=== PATIENT | male | born 1985 | race Caucasian/White ===

== ENCOUNTER 2024-04-06 15:23 | Outpatient (AMB) | payer OTHER, SELFPAY ==
[2024-04-06 15:31] VITALS: BP 144/76; PULSE 102; RESP 15; TEMP 36.6; O2SAT 99; BMI 39.3
--- NOTE | 2024-04-06 15:31 | MHC.PC.OV ---
Vital Signs 04/06/24 15:31 04/06/24 16:13 Height 6 ft 6 in Weight 340 lb 6 oz BMI 39.3 BP 144/76 H Blood Pressure Location Rt brachial Position Sitting Respiration 15 Pulse 102 H 88 Pulse Source Pulse Oximeter Temp 97.8 F Temp Source Temporal Artery Scan Pulse Oximetry (%) 99 Oxygen Delivery Method Room Air Intake Visit Reasons: [facility] not a transfer Intake Note: Patient states that he would like to discuss his elevated bp and other alternatives that wouldnt require him to take medication. Patint is also concerned about a hernia he currently has. Bulb Grader Required: No Accompanied by: Self / Same As Patient Allergies No Known Allergies [No Known Allergies*] Allergy (Verified 04/06/24 15:38) Tobacco use date assessed: 04/06/24 Dental Screening Dental Screen Date: 04/06/24 Did you have a dental visit in the last 12 months?: Yes Did you have a dental problem in the last 6 months where you did not have access to dental care?: No Was dental information given to patient?: Patient has dentist HPI HPI Comments History of Present Illness Details This is a 38-year-old male with a past medical history of hypertension and obesity presenting to [facility]. He transferred from Dr. Bean. Hypertension-patient was prescribed lisinopril in the past. It caused restless legs. He stopped it. Blood pressure is 144/76 today. He has not been monitoring at home. He is overweight. He drinks soda, usually to coke, 2 per day. When he stopped drinking soda he lost 20 or 30 lb in a few months. 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 He has 2 dinner portions of food around 630pm. He does not drink much alcohol. He just came back from vacation and drank about 6 beers the entire time. He does not smoke. Denies family history of hypertension. No chest pain or shortness of breath. No leg swelling. Patient says he does not like to take medications. He also does not want to develop complications from high blood pressure. He endorses history of hypertension for more than 5 years. He wants to take better care of himself. He has a 4-year-old daughter. Patient says he has a hernia in the right groin. He saw Dr. Valente at [facility] about 8 months ago. It was not present on the CT scan. He was told to follow up if it got worse. He says that it is more noticeable now and causes discomfort when it is not reduced. He has had four hernias as a result of surgery for a colon rupture from an intestinal infection years ago. He was admitted on and off for 2 months at [facility] for that. He has had a few colonoscopies. ROS: Constitutional: No unexplained weight loss, fever, chills, fatigue or night sweats. Eyes: No vision changes Respiratory: No shortness of breath Cardiovascular: No chest pain, chest pressure or chest discomfort. No palpitations or pedal edema. Gastrointestinal: No anorexia, nausea, vomiting or diarrhea. No abdominal pain or blood in stool. Neurologic: No headache, dizziness, syncope [facility] Medical History (Updated 04/06/24 @ 16:29 by SURESH Lima) Obesity with serious comorbidity Essential hypertension Hernia BP (high blood pressure) Rupture of colon Surgical History H/O hernia repair Family History Father Emphysema lung Social History (Updated 04/06/24 @ 15:44 by ANURADHA Carroll) Household Members: Spouse and Family Both parents involved: No Caregiver staying overnight: No Housing: House Are you a primary neonatal intensive care nurse to a significant other at home: No Do you presently have visiting nurse or other home services: No 75 years or older and lives alone: No Alcohol intake: current Alcohol intake frequency: holidays/special occasions only Patient Tobacco Use Status: Never used Tobacco e-Cigarette/Vaping Use: Never Used service: No Current occupational status: employed Current occupation: [employer] Cognitive 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 1. Little interest or pleasure in doing things: not at all 2. Feeling down, depressed, or hopeless: not at all 3. Trouble falling or staying asleep, or sleeping too much: not at all 4. Feeling tired or having little energy: not at all 5. Poor appetite or overeating: not at all 6. Feeling bad about yourself - or that you are a failure or have let yourself or your family down: not at all 7. Trouble concentrating on things, such as reading the newspaper or watching television: not at all 8. Moving or speaking so slowly that other people could have noticed. Or the opposite - being so fidgety or restless that you have been moving around a lot more than usual: not at all 9. Thoughts that you would be better off or of hurting yourself in some way: not at all Total score: 0 Depression Screening Interpretation: Negative Depression Screening Done: Yes 73057 - PHQ-9 Billing: Yes Source: Developed by Drs. Eron Aguilar, Luzmaria Henry, Armaan Middleton and colleagues, with an educational philly from [employer]. Thrive Questionnaire Date Thrive assessed: 04/06/24 I am a: Patient What is your living situation today?: I have a steady place to live Within the past 12 months, did the food you bought not last and you didn't have the money to get more?: Never true Within the past 12 months, did you worry whether your food would run out before you got money to buy more?: Never true Do you have trouble paying for medicines?: No Do you have trouble getting transportation to medical appointments?: No Do you have trouble paying your heating and electricity bill?: No Do you have trouble taking care of your child, family member or friend?: No Do you have trouble with day-to-day activities such as bathing, preparing meals, shopping, managing finances, etc.?: No Are you currently unemployed and looking for a job?: No Are you interested in more education?: Yes Please select the resources that you would like help with: Education and None Currently or been in a relationship where the following occur: No concerns reported THRIVE Score: 0 AUDIT C Alcohol Use Questionnaire (AUDIT-C) 1. How often do you have a drink containing alcohol?: Monthly or less 2. How many drinks containing alcohol do you have on a typical day when you are drinking?: 1 or 2 3. How often do you have six or more drinks on one occasion?: Never Total Score: 1 MÓNICA-7 AMB Questionnaire MÓNICA-7 Date MÓNICA - 7 assessed: 04/06/24 Feeling nervous, anxious, or on edge: 0 = Not at all Not being able to stop or control worryin = Not at all Worrying too much about different things: 0 = Not at all Trouble relaxin = Not at all Being so restless that it is hard to sit still: 0 = Not at all Becoming easily annoyed or irritable: 0 = Not at all Feeling afraid as if something awful might happen: 0 = Not at all Total MÓNICA-7 score (0-4 normal; 5-9 mild; 10-14 moderate; 15-21 severe): 0 Source: Developed by Drs. Eron Aguilar, Luzmaria Henry, Armaan Middleton and colleagues, with an educational philly from [employer]. MÓNICA-7 Assessment Billing MÓNICA-7 Assessment Tool: MÓNICA-7 Assessment 15472 Physical exam (Primary Care) Vital Signs: Last Vital Signs Temp 97.8 F 04/06/24 15:31 Pulse 88 04/06/24 16:13 Resp 15 04/06/24 15:31 BP 144/76 H 04/06/24 15:31 Pulse Ox 99 04/06/24 15:31 Oxygen Delivery Method Room Air 04/06/24 15:31 BMI result Body Mass Index 39.3 Tobacco/Smoking Status: Tobacco use Status Tobacco use date assessed 04/06/24 04/06/24 15:47 Patient Tobacco Use Status Never used Tobacco 04/06/24 15:47 e-Cigarette/Vaping Use Never Used 04/06/24 15:47 PHQ-9: PHQ-9 Score PHQ-9: Total score 0 04/06/24 16:15 Depression Screening Interpretation: Negative Thrive Assessment: Date of Thrive Assessment Date Thrive assessed 04/06/24 04/06/24 15:47 Currently or been in a relationship where the following occur: No concerns reported Assessment and Plan Assessment & Plan (1) Essential hypertension: Code(s): I10 - Essential (primary) hypertension (2) Obesity with serious comorbidity: Code(s): E66.9 - Obesity, unspecified Qualifiers: Body mass index: BMI 39.0-39.9 Obesity classification: adult class 2 (BMI 35 - 39.9) Obesity type: due to excess calories Qualified Code(s): E66.01 - Morbid (severe) obesity due to excess calories; Z68.39 - Body mass index [BMI] 39.0-39.9, adult (3) Hernia: Code(s): K46.9 - Unspecified abdominal hernia without obstruction or gangrene Plan Patient will have fasting labs completed and urinalysis to check for proteinuria. Patient will have echocardiogram to evaluate for hypertensive heart disease. He is going to call Dr. Valente regarding the hernia. He is adamant that he wants to avoid medications. He wants to try lifestyle modifications. We will allow him 3 months to work on this. Recommended low-salt diet. He is going to stop drinking soda. Avoid caffeine. Low-carbohydrate diet and exercise to promote weight loss are encouraged. Defers referral to chronic specialist. We discussed weight loss medications. He defers for now. Follow up in 3 months for physical exam/blood pressure recheck. Orders: Orders Comprehensive Met. Panel Today E66.9 - Obesity, unspecified, I10 - Essential (primary) hypertension, Z13.6 - Encounter for screening for cardiovascular disorders AMB EKG-In Office Today I10 - Essential (primary) hypertension Lipid Panel Today E66.9 - Obesity, unspecified, I10 - Essential (primary) hypertension, Z13.6 - Encounter for screening for cardiovascular disorders Complete Blood Count no Diff Today E66.9 - Obesity, unspecified, I10 - Essential (primary) hypertension, Z13.6 - Encounter for screening for cardiovascular disorders TSH reflex Free T4 Today E66.9 - Obesity, unspecified, I10 - Essential (primary) hypertension, Z13.6 - Encounter for screening for cardiovascular disorders UA w Microscopic Today I10 - Essential (primary) hypertension Coding Level of Care Code Est Pt Level 4 (53261) Complex EM visit Add On G2211 Diagnoses Essential hypertension I10 Class 2 severe obesity due to excess calories with serious comorbidity and body mass index (BMI) of 39.0 to 39.9 in adult E66.01; Z68.39 Body mass index: BMI 39.0-39.9 Obesity classification: adult class 2 (BMI 35 - 39.9) Obesity type: due to excess calories Hernia K46.9 Additional Codes MÓNICA-7 Assessment Billing - MÓNICA-7 Assessment Tool: MÓNICA-7 Assessment 18533 ([id number])
[2024-04-06 16:13] VITALS: PULSE 88
== END 2024-04-06 16:57 | disposition home or self-care (01) ==
PROVIDERS: PCP Physician Assistant Medical; Visit Provider Physician Assistant Medical
DX: I10 Essential (primary) hypertension (principal); E66.01 Morbid (severe) obesity due to excess calories; Z68.39 Body mass index [BMI] 39.0-39.9, adult; K46.9 Unspecified abdominal hernia without obstruction or gangrene
CPT/HCPCS: 99214

== ENCOUNTER → 2024-05-29 15:00 | Outpatient (REF) | payer OTHER, SELFPAY ==
--- NOTE | 2024-05-29 15:03 | CA_ITS ---
Transthoracic Echocardiogram Patient (Last, First, Middle): Levar Rich F Gender: Male Date of : 1985 Age: 38 Procedure Date: 05/29/2024 Procedure Type: Transthoracic Echocardiogram Location: OP Height: 198.12 cm Weight: 138.35 kg BSA: 2.70 m2 Heart Rate: bpm BP: 132 / 70 mmHg Outpatient Coding Specialist: TO Referring MD: Judy PRINCE Symptoms: I10 - Essential (primary) hypertension Study Quality: Technically Difficult/Contrast Conclusions: - Normal left ventricular size, thickness, systolic function, and wall motion. The visually estimated ejection fraction is between 55-60%. There is evidence of regional wall motion abnormalities. Diastolic function is normal for age. - The basal inferior segment is hypokinetic. - Normal right ventricular cavity size and systolic function. Findings Procedure Information Contrast agent, definity, is being given per protocol without apparent complications. Left Ventricle Normal left ventricular size, thickness, systolic function, and wall motion. The visually estimated ejection fraction is between 55-60%. There is evidence of regional wall motion abnormalities. Diastolic function is normal for age. Wall Motion Rest Echo Findings The basal inferior segment is hypokinetic. Right Ventricle Normal right ventricular cavity size and systolic function. Atria The left atrium is normal in size. The right atrium is normal in size. Aortic Valve Normal aortic valve structure and function. There is no aortic valve stenosis. There is no aortic valve regurgitation. Mitral Valve The mitral valve appears normal. There is no mitral valve regurgitation. There is no mitral valve stenosis. Pulmonic Valve The pulmonic valve is normal. There is no pulmonic valve regurgitation. Tricuspid Valve Normal tricuspid valve structure. There is no tricuspid valve regurgitation. Tricuspid regurgitation envelope is inadequate for calculation of right ventricular systolic pressure. Normal right atrial pressure. Great Vessels All visible segments of the aorta are normal in size. The visualized portions of the pulmonary artery and branches are normal. Venous The inferior vena cava is normal in size and collapses greater than 50% with inspiration. Pericardium/Pleural There is no evidence of pericardial effusion. Prior Study Comparison No prior study available for comparison. Measurements 2D Linear Measurements IVSd: 1.24 0.6-0.9/0.6-1.0 cm LVIDd: 5.39 3.9-5.3/4.2-5.9 cm LVIDd Index: 2.00 2.4-3.2/2.2-3.1 cm/m2 LVIDs: 4.01 2.0-3.6 cm LVPWd: 1.02 0.7-1.1 cm LA Diam: 3.80 2.7-3.8/3.0-4.0 cm LAIDs Index: 1.41 1.5-2.3 cm/m2 LV Mass: 302.75 67-162/88-224 g LV Mass Index: 112.13 43-95/49-115 g/m2 LVOT Diam: 2.70 3.0+(-)1.3 cm 2D Systolic Function EF 4C: 52.60 >55% EF 2C: 55.10 >55% EF BiP: 54.60 >55% Mitral Valve MV Pk E: 0.72 MV PK A: 0.44 MV Decel Time: 209.00 E/A: 1.60 E'Lateral: 9.57 E'Medial: 9.03 E/E' Med: 8.00 E/E' Lat: 7.50 PHT: 61.00 MVA PHT: 3.61 Decel Blair: 3.44 Aortic Valve AoV Pk Fredis: 1.16 AoV Mn Fredis: 0.82 AoV VTI: 0.25 AoV Pk Grad: 5.00 Aov Mn Grad: 3.00 N[place]EL Cont.VTI: 4.02 LVOT LVOT Pk Fredis: 0.78 LVOT Mn Fredis: 0.50 LVOT VTI: 0.17 LVOT Pk Grad: 2.00 LVOT Mn Grad: 1.00 LVOT Diam: 2.70 LVOT Area: 5.73 Diastolic Function MV Pk E: 0.72 MV Pk A: 0.44 E/A: 1.60 E'Medial: 9.03 E/E' Med: 8.00 E' Laterial: 9.57 E/E' Lat: 7.50 Right Ventricle TAPSE (mm): 21.40 TVS' Fredis: 11.60 Tricuspid Valve RA Press: 8.00 Great Vessels Aorta Sinus of Valsalva: 3.94 2.0-3.5 cm Ao Asc: 3.30 2.1-3.4 cm Ao Arch: 2.80 Updated in Other Vendor System with Status of Final Arie Gonzalez MD electronically signed on 05/31/2024 1:37:25 PM with status of Final
== END ==
LOC: HO.CARD 15:00
PROVIDERS: PCP Physician Assistant Medical; Visit Provider Physician Assistant Medical
DX: I10 Essential (primary) hypertension (principal); E66.01 Morbid (severe) obesity due to excess calories; Z68.39 Body mass index [BMI] 39.0-39.9, adult
CPT/HCPCS: 93306; Q9957

== ENCOUNTER → 2024-05-29 15:03 | Outpatient (BNV) | payer OTHER, SELFPAY | PROVIDERS: PCP Physician Assistant Medical; Visit Provider Internal Medicine Cardiovascular Disease | DX: I10 Essential (primary) hypertension (principal) | CPT/HCPCS: 93306 ==

== ENCOUNTER 2024-07-23 10:54 | Outpatient (AMB) | payer OTHER, SELFPAY ==
--- NOTE | 2024-07-23 10:56 | A.OFFPC_ITS ---
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 He had an echocardiogram in May which was normal aside from basal inferior segment hypokinesis. He has no history of CAD. He denies chest pain or shortness of breath with exertion. I referred him to Cardiology for this. His appointment is scheduled in September. Patient tells me today that he is having surgery on 09/28/2023 to repair the right inguinal hernia. 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 The patient is very stressed because he does not know what else he can do. He is going to talk to his union rep, and he was asking about disability. I told him he can pursue that though I do not know if it will be approved. He may also look into filing for unemployment, but ultimately he would like to see if the college can offer him another job that does not require lifting. ROS: Constitutional: No unexplained weight loss, fever, chills, fatigue or night sw eats. Eyes: No vision changes, blurry vision, double vision, eye pain, eye redness, eye discharge. ENT: No hearing loss, sneezing, congestion, runny nose or sore throat. Respiratory: No shortness of breath, cough or sputum production. Cardiovascular: No chest pain, chest pressure or chest discomfort. No palpitations or pedal edema. Gastrointestinal: No anorexia, nausea, vomiting or diarrhea. No abdominal pain or blood in stool. Genitourinary: No dysuria, hematuria, urinary frequency. Neurologic: No headache, dizziness, syncope, unilateral weakness, ataxia, numbness or tingling in the extremities. Musculoskeletal: No muscle pain, back pain, joint pain or swelling. Hematologic/Lymphatics: No bleeding or bruising. No painful lymph nodes. Skin: No rash or itching. Endocrine: No cold or heat intolerance. No polyuria or polydipsia. Psychiatric: No depression. No SI/HI. Physical exam: Constitutional: Alert, in no distress. Head: Normocephalic. Eyes: Pupils are equal, round and reactive to light. Extraocular muscles intact. Ear, Nose and Throat: Canals clear. TMs normal. Normal nasal mucosa. No nasal discharge. No oral lesions. Neck: Supple, Full range of motion. No lymphadenopathy. No palpable thyroid masses. Respiratory: Clear to auscultation. Cardiovascular: S1 S2 regular. No murmurs. Gastrointestinal: Abdomen soft, non-tender, non-distended. Normal bowel sounds. No palpable masses. Genitourinary: Deferred. Neurologic: No focal neurological deficits. Symmetric patellar reflexes. Moves all extremities spontaneously. Sensation intact bilaterally. Skin: No rashes Musculoskeletal: No gross deformities. Normal range of motion. Extremities: Warm and well perfused. No clubbing, cyanosis or edema. Psychiatric: Normal mood and affect [facility] Medical History (Updated 07/23/24 @ 15:28 by SURESH Lima) Routine physical examination Abnormal echocardiogram Obesity with serious comorbidity Essential hypertension Hernia BP (high blood pressure) Rupture of colon Surgical History H/O hernia repair Family History Father Emphysema lung Social History (Updated 04/06/24 @ 15:44 by ANURADHA Carroll) Household Members: Spouse and Family Both parents involved: No Caregiver staying overnight: No Housing: House Are you a primary hospice spiritual care coordinator to a significant other at home: No Do you presently have visiting nurse or other home services: No 75 years or older and lives alone: No Alcohol intake: current Alcohol intake frequency: holidays/special occasions only Patient Tobacco Use Status: Never used Tobacco e-Cigarette/Vaping Use: Never Used service: No Current occupational status: employed 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 1. Little interest or pleasure in doing things: not at all 2. Feeling down, depressed, or hopeless: not at all 3. Trouble falling or staying asleep, or sleeping too much: not at all 4. Feeling tired or having little energy: not at all 5. Poor appetite or overeating: not at all 6. Feeling bad about yourself - or that you are a failure or have let yourself or your family down: not at all 7. Trouble concentrating on things, such as reading the newspaper or watching television: not at all 8. Moving or speaking so slowly that other people could have noticed. Or the opposite - being so fidgety or restless that you have been moving around a lot more than usual: not at all 9. Thoughts that you would be better off or of hurting yourself in some way: not at all Total score: 0 73572 - PHQ-9 Billing: Yes Source: Developed by Drs. Eron Aguilar, Luzmaria Henry, Armaan Middleton and colleagues, with an educational philly from [employer]. Thrive Questionnaire Date Thrive assessed: 07/23/24 I am a: Patient What is your living situation today?: I have a steady place to live Within the past 12 months, did the food you bought not last and you didn't have the money to get more?: Sometimes True Within the past 12 months, did you worry whether your food would run out before you got money to buy more?: Sometimes True Do you have trouble paying for medicines?: No Do you have trouble getting transportation to medical appointments?: No Do you have trouble paying your heating and electricity bill?: No Do you have trouble taking care of your child, family member or friend?: No Do you have trouble with day-to-day activities such as bathing, preparing meals, shopping, managing finances, etc.?: No Are you currently unemployed and looking for a job?: No Are you interested in more education?: No Please select the resources that you would like help with: Food, Utilities, Job search/training and Education Currently or been in a relationship where the following occur: No concerns reported THRIVE Score: 2 AUDIT C Alcohol Use Questionnaire (AUDIT-C) 1. How often do you have a drink containing alcohol?: Never Total Score: 0 MÓNICA-7 AMB Questionnaire MÓNICA-7 Date MÓNICA - 7 assessed: 07/23/24 Feeling nervous, anxious, or on edge: 0 = Not at all Not being able to stop or control worryin = Not at all Worrying too much about different things: 0 = Not at all Trouble relaxin = Not at all Being so restless that it is hard to sit still: 0 = Not at all Becoming easily annoyed or irritable: 0 = Not at all Feeling afraid as if something awful might happen: 0 = Not at all Total MÓNICA-7 score (0-4 normal; 5-9 mild; 10-14 moderate; 15-21 severe): 0 Source: Developed by Drs. Eron Aguilar, Luzmaria Henry, Armaan Middleton and colleagues, with an educational philly from [employer]. MÓNICA-7 Assessment Billing MÓNICA-7 Assessment Tool: MÓNICA-7 Assessment 99191 Physical exam (Primary Care) Vital Signs: Last Vital Signs Temp 98.7 F 07/23/24 10:59 Pulse 86 07/23/24 10:59 Resp 14 07/23/24 10:59 BP 144/78 H 07/23/24 10:59 Pulse Ox 98 07/23/24 10:59 Oxygen Delivery Method Room Air 07/23/24 10:59 BMI result Body Mass Index 38.1 Tobacco/Smoking Status: Tobacco use Status Tobacco use date assessed 04/06/24 07/23/24 10:59 Patient Tobacco Use Status Never used Tobacco 07/23/24 10:59 e-Cigarette/Vaping Use Never Used 07/23/24 10:59 PHQ-9: PHQ-9 Score PHQ-9: Total score 0 07/23/24 11:59 Thrive Assessment: Date of Thrive Assessment Date Thrive assessed 07/23/24 07/23/24 10:59 Currently or been in a relationship where the following occur: No concerns reported Office Procedures Flu Questionnaire Does the patient have a severe egg allergy?: No Does the patient have severe life threatening allergies?: No Does the patient have a fever or illness today?: No Has the patient ever had Guillain-[place] Syndrome?: No Has the patient ever had any past reaction to a flu shot?: No Immunizations Fluarix Triv [id number] (PF) 45 mcg (15 mcg x 3)/0.5 mL IM syringe Performing Provider: SURESH Lima Performing Location: [facility] [place] [facility] Administered by: Michelle Prieto RN on 07/23/24 11:58 Dose Route Admin Location Dispensed Lot Number Expiration Date [facility] Production Corrugator 0.5 mL IM Right Deltoid 0.5 mL [id number] 03/15/25 [id number] Immune Targeting Systems VIS Given Date VIS Provided VIS Publication Date 07/23/24 Single Vaccine 21 Eligibility Eligibility Date Funding Source Not [facility] Eligible 07/23/24 Private Coding Level of Care Code Est Pt Prev Care 18-39y(89750) Diagnoses Routine physical examination Z00.00 Abnormal echocardiogram R93.1 Class 2 severe obesity due to excess calories with serious comorbidity and body mass index (BMI) of 39.0 to 39.9 in adult E66.01; Z68.39 Obesity type: due to excess calories Obesity classification: adult class 2 (BMI 35 - 39.9) Body mass index: BMI 39.0-39.9 Essential hypertension I10 Hernia K46.9 Additional Codes MÓNICA-7 Assessment Billing - MÓNICA-7 Assessment Tool: MÓNICA-7 Assessment 11615 ([id number]) PHQ-9 - 84461 - PHQ-9 Billing: Yes ([id number]) Assessment & Plan Assessment & Plan (1) Routine physical examination: Code(s): Z00.00 - Encounter for general adult medical examination without abnormal findings Category: Medical (2) Abnormal echocardiogram: Comment: basal inferior segment hypokinesis echo 05/29/2024 Code(s): R93.1 - Abnormal findings on diagnostic imaging of heart and coronary circ ulation Category: Medical (3) Obesity with serious comorbidity: Code(s): E66.9 - Obesity, unspecified Category: Medical Qualifiers: Obesity type: due to excess calories Obesity classification: adult class 2 (BMI 35 - 39.9) Body mass index: BMI 39.0-39.9 Qualified Code(s): E66.01 - Morbid (severe) obesity due to excess calories; Z68.39 - Body mass index [BMI] 39.0-39.9, adult (4) Essential hypertension: Code(s): I10 - Essential (primary) hypertension Category: Medical (5) Hernia: Code(s): K46.9 - Unspecified abdominal hernia without obstruction or gangrene Category: Medical Plan Patient is seen today for a routine physical. As part of this visit we reviewed the following issues, which are considered and essential part of preventative health in this age group: - Testicular cancer screening, which includes self exam teaching - Screening for colon cancer - Blood pressure screening annually - Cholesterol screening - Nutritional and exercise counseling - Counseling of injury prevention including fire prevention, smoke alarms and seat belt usage - Screening for depression - Education about skin cancer - Recommendations about immunizations - Recommendation of an eye exam - Screening for substance abuse I placed a new cardiology referral urgently since he will need to be cleared prior to surgery in September. Requested office visit note his general surgeon at [facility]. Patient will start amlodipine 5 mg daily for hypertension. Continue lifestyle modifications. He has lost weight and I congratulated him on this. Side effects of medication reviewed. Recommended low-sodium diet and avoidance of caffeine. Follow up in 4 weeks for hypertension. Orders: Orders Influenza [id number] Immunization Today Z23 - Encounter for immunization Medications: New amlodipine 5 mg PO DAILY 30 tabs 0RF
[2024-07-23 10:59] VITALS: BP 144/78; PULSE 86; RESP 14; TEMP 37.1; O2SAT 98; BMI 38.1
== END 2024-07-23 11:56 | disposition home or self-care (01) ==
LOC: HO.HMCFM 10:55
PROVIDERS: PCP Physician Assistant Medical; Visit Provider Physician Assistant Medical
DX: Z00.00 Encounter for general adult medical examination without abnormal findings (principal); R93.1 Abnormal findings on diagnostic imaging of heart and coronary circulation; E66.01 Morbid (severe) obesity due to excess calories; Z68.39 Body mass index [BMI] 39.0-39.9, adult; I10 Essential (primary) hypertension; K46.9 Unspecified abdominal hernia without obstruction or gangrene; Z23 Encounter for immunization

== ENCOUNTER → 2024-07-23 10:54 | Outpatient (BNVA) | payer OTHER, SELFPAY | PROVIDERS: PCP Physician Assistant Medical; Visit Provider Physician Assistant Medical | DX: Z00.00 Encounter for general adult medical examination without abnormal findings (principal); Z23 Encounter for immunization; R93.1 Abnormal findings on diagnostic imaging of heart and coronary circulation; E66.01 Morbid (severe) obesity due to excess calories; Z68.39 Body mass index [BMI] 39.0-39.9, adult; I10 Essential (primary) hypertension; K46.9 Unspecified abdominal hernia without obstruction or gangrene; Z79.899 Other long term (current) drug therapy | CPT/HCPCS: 90471; 90656; 96127 ==

== ENCOUNTER 2024-08-20 08:54 | Outpatient (AMB) | payer OTHER, SELFPAY ==
--- NOTE | 2024-08-20 08:56 | MHC.PC.OV ---
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 He started amlodipine 5 mg once daily. He denies side effects. His home readings are around 140/70s. Today his blood pressure is 142/71 which is a modest improvement. He had an echocardiogram in May which was normal aside from basal inferior segment hypokinesis. He has no history of CAD. He denies chest pain or shortness of breath with exertion. I referred him to Cardiology for this. His appointment is scheduled in September, and I placed a new urgent referral since he has surgery scheduled on 09/28/2023 for a right inguinal hernia repair. He has not heard back about a sooner appointment. I sent a high priority message to the referrals department, and I asked the patient to call me if he does not hear about this in 1 week. ROS: Constitutional: No unexplained weight loss, fever, chills, fatigue or night sweats. Eyes: No vision changes Respiratory: No shortness of breath Cardiovascular: No chest pain, chest pressure or chest discomfort. No palpitations or pedal edema. Neurologic: No headache, dizziness, syncope Physical exam: Constitutional: Alert, in no distress. Respiratory: Clear to auscultation. Cardiovascular: S1 S2 regular. No murmurs. [facility] Medical History (Updated 07/23/24 @ 15:28 by SURESH Lima) Routine physical examination Abnormal echocardiogram Obesity with serious comorbidity Essential hypertension Hernia BP (high blood pressure) Rupture of colon Surgical History H/O hernia repair Family History Father Emphysema lung Social History (Updated 04/06/24 @ 15:44 by ANURADHA Carroll) Household Members: Spouse and Family Housing: House Are you a primary career services officer to a significant other at home: No Do you presently have visiting nurse or other home services: No Alcohol intake: current Alcohol intake frequency: holidays/special occasions only Patient Tobacco Use Status: Never used Tobacco e-Cigarette/Vaping Use: Never Used service: No Current occupational status: employed 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 54764 - PHQ-9 Billing: Patient declined-do not bill Source: Developed by Drs. Eron Aguilar, Luzmaria Henry, Armaan Middleton and colleagues, with an educational philly from [employer]. Thrive Questionnaire Date Thrive assessed: 08/20/24 I am a: Patient What is your living situation today?: I have a steady place to live Within the past 12 months, did the food you bought not last and you didn't have the money to get more?: Sometimes True Within the past 12 months, did you worry whether your food would run out before you got money to buy more?: Sometimes True Do you have trouble paying for medicines?: No Do you have trouble getting transportation to medical appointments?: No Do you have trouble paying your heating and electricity bill?: No Do you have trouble taking care of your child, family member or friend?: No Do you have trouble with day-to-day activities such as bathing, preparing meals, shopping, managing finances, etc.?: No Are you currently unemployed and looking for a job?: No Are you interested in more education?: No Currently or been in a relationship where the following occur: No concerns reported THRIVE Score: 2 MÓNICA-7 AMB Questionnaire MÓNICA-7 Date MÓNICA - 7 assessed: 07/23/24 Source: Developed by Drs. Eron Aguilar, Luzmaria Henry, Armaan Middleton and colleagues, with an educational philly from [employer]. Physical exam (Primary Care) Vital Signs: Last Vital Signs Temp 97.7 F 08/20/24 08:59 Pulse 82 08/20/24 08:59 Resp 14 08/20/24 08:59 BP 142/71 H 08/20/24 09:15 Pulse Ox 98 08/20/24 08:59 Oxygen Delivery Method Room Air 08/20/24 08:59 BMI result Body Mass Index 38.6 Tobacco/Smoking Status: Tobacco use Status Tobacco use date assessed 04/06/24 08/20/24 09:01 Patient Tobacco Use Status Never used Tobacco 08/20/24 09:01 e-Cigarette/Vaping Use Never Used 08/20/24 09:01 Thrive Assessment: Date of Thrive Assessment Date Thrive assessed 08/20/24 08/20/24 09:01 Currently or been in a relationship where the following occur: No concerns reported Coding Level of Care Code Est Pt Level 3 (06754) Complex EM visit Add On G2211 Diagnoses Essential hypertension I10 Assessment & Plan Assessment & Plan (1) Essential hypertension: Code(s): I10 - Essential (primary) hypertension Category: Medical Plan: Increase amlodipine to 10 mg daily. Continue low-sodium diet and avoidance of caffeine and efforts at weight loss. Avoid alcohol. Follow up in 2 weeks for re-evaluation. Medications: New amlodipine 10 mg PO DAILY 30 tabs 0RF Discontinued amlodipine Discontinued Reason: Doctor's Order 5 mg PO DAILY 30 tabs 0RF
[2024-08-20 08:59] VITALS: BP 144/77; PULSE 82; RESP 14; TEMP 36.5; O2SAT 98; BMI 38.6
[2024-08-20 09:15] VITALS: BP 142/71
== END 2024-08-20 09:23 | disposition home or self-care (01) ==
PROVIDERS: PCP Physician Assistant Medical; Visit Provider Physician Assistant Medical
DX: I10 Essential (primary) hypertension (principal)

== ENCOUNTER → 2024-08-20 08:54 | Outpatient (BNVA) | payer OTHER, SELFPAY | PROVIDERS: PCP Physician Assistant Medical; Visit Provider Physician Assistant Medical ==

== ENCOUNTER 2024-08-20 09:27 | Outpatient (REF) | payer OTHER, SELFPAY ==
[2024-08-20 11:29] LABS: Appearance Urine Clear; Color Urine Yellow; Glucose Urine UA Negative (Negative); Leukocyte Esterase Urine Negative (Negative); Nitrite Urine Negative (Negative); Urine Blood Negative (Negative); Urine Ketones Negative (Negative); Urine Protein Negative (Neg-Trace)
[2024-08-20 11:33] LABS: Bacteria Urine None Seen (None Seen); Hyaline Casts Urine 0-2 /LPF (0-2); RBC Urine 0-2 /HPF (0-2); Squamous Epithelial Cell Urine 0-2 /HPF (0-2); WBC Urine 0-5 /HPF (0-5)
[2024-08-20 11:40] LABS: Hematocrit 38.5 % (42.0-52.0); Hemoglobin 13.3 g/dl (14.0-18.0); Mean Corpuscular HGB Conc 34.5 g/dl (31.0-36.0); Mean Corpuscular Hemoglobin 31.1 pg (27.0-33.0); Mean Corpuscular Volume 90.2 fL (80.0-98.0); Mean Platelet Volume 9.9 fL (9.4-12.4); Platelet Count 268 X10*3/uL (160-400); Red Blood Count 4.27 X10*6/uL (4.60-5.80); Red Cell Distribution Width 12.3 % (11.0-16.0); White Blood Count 6.5 X10*3/uL (4.8-10.8)
[2024-08-20 12:10] LABS: Alanine Aminotransferase 29 U/L (0-40); Albumin Level 4.3 g/dL (3.5-5.0); Alkaline Phosphatase 66 U/L (39-117); Anion Gap 9 (12-20); Aspartate Amino Transferase 26 U/L (5-37); Bilirubin Total 2.1 mg/dL (0.0-1.0); Blood Urea Nitrogen 10 mg/dL (9-16); Calcium 9.3 mg/dL (8.4-10.2); Carbon Dioxide 27 mmol/L (22-29); Chloride 107 mmol/L (96-108); Cholesterol 142 mg/dL (<200); Estimated Glomerular Filt Rate > 60; Glucose Random 99 mg/dL (60-115); HDL Cholesterol 35 mg/dL (>40); LDL Cholesterol Calculated 86 mg/dL (<100); Potassium 4.5 mmol/L (3.3-5.1); Sodium 138 mmol/L (135-145); Total Protein 7.2 g/dL (6.5-8.0); Triglycerides 107 mg/dL (<150)
[2024-08-20 12:15] LABS: TSH reflex Free T4 0.81 uIU/mL (0.32-4.0)
== END 2024-08-20 09:28 | disposition home or self-care (01) ==
LOC: HO.WFDLDS 09:27
PROVIDERS: Visit Provider Physician Assistant Medical
DX: I10 Essential (primary) hypertension (principal); E66.9 Obesity, unspecified; Z13.6 Encounter for screening for cardiovascular disorders
CPT/HCPCS: 36415; 80053; 80061; 81001; 84443; 85027

== ENCOUNTER 2024-09-01 13:08 | Outpatient (AMB) | payer OTHER, SELFPAY ==
[2024-09-01 13:10] VITALS: BP 158/80; PULSE 93; BMI 37.9
--- NOTE | 2024-09-01 13:10 | MHC.OFFVIS ---
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 Patient himself does not have any cardiac issues whatsoever. He states he is quite active at baseline and plays and does extensive physical activity with absolutely no concerns. Has never had angina or shortness of breath or any cardiac symptoms whatsoever. He also does not have any previous cardiac history. Has hypertension and recently started taking medications. He is overweight. Apart from his weight and high blood pressure does not have any major comorbidities. Denies any family history of premature CAD. Nonsmoker. [facility] Medical History (Updated 09/01/24 @ 13:44 by Michael Steel MD) Elevated bilirubin Mild anemia Routine physical examination Abnormal echocardiogram Obesity with serious comorbidity Essential hypertension Hernia BP (high blood pressure) Rupture of colon Surgical History H/O hernia repair Family History Father Emphysema lung Social History Household Members: Spouse and Family Both parents involved: No Caregiver staying overnight: No Housing: House Are you a primary physician assistant primary care to a significant other at home: No Do you presently have visiting nurse or other home services: No 75 years or older and lives alone: No Alcohol intake: current Alcohol intake frequency: holidays/special occasions only Patient Tobacco Use Status: Never used Tobacco e-Cigarette/Vaping Use: Never Used service: No Current occupational status: employed 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 Cognitive needs: No Hearing needs: No Vision needs: Yes Review of Systems Const Denies chills, Denies daytime sleepiness, Denies fatigue, Denies fever(s), Denies poor appetite, Denies snoring, Denies stops breathing during sleep, Denies weakness, Denies weight gain and Denies weight loss Eyes Denies loss of vision ENT Denies dizziness and Denies hearing loss Card Denies chest pain, Denies irregular heart rhythm, Denies claudication, Denies leg edema, Denies lightheadedness, Denies palpitations, Denies dyspnea on exertion and Denies orthopnea Resp Denies cough, Denies excessive phlegm production, Denies dyspnea on exertion, Denies snoring and Denies wheezing GI Denies abdominal pain, Denies hematochezia, Denies change in bowel habits, Denies nausea and Denies vomiting Denies dysuria and Denies urinary frequency Musc Denies arthralgias, Denies muscle weakness, Denies numbness and Denies other Skin/Breast Denies nail changes and Denies rash Neuro Denies Abnormal speech present, Denies dizziness, Denies loss of vision, Denies memory loss, Denies numbness and Denies weakness Psych Denies depression and Denies memory loss Endo Denies fatigue and Denies palpitations Oren/Lymph Denies easy bruising Aller/Immun Denies wheezing Physical Exam Vital Signs: Last Vital Signs Pulse 93 09/01/24 13:10 BP 158/80 H 09/01/24 13:10 BMI result Body Mass Index 37.9 Const General: comfortable and no acute distress Orientation/consciousness: patient oriented x3 HEENT Other: Unremarkable Head: Yes normal to inspection Neck Neck: Yes normal visual inspection Chest Chest palpation & inspection: normal inspection of the chest Resp Auscultation: clear to auscultation bilaterally Cardio Palpation: normal PMI Heart sounds: S1 normal heart sound present, S2 normal heart sound present, no gallops, no murmurs and no rubs GI Palpation (GI): Soft to palpation Back/Spine/Pelvis Other: unremarkable Skin General skin exam: no rashes or lesions noted Neuro General: patient oriented x3 Speech: No Abnormal speech present Extrem General: Yes normal to inspection Psych Mental Status: mental status grossly normal Office Procedures EKG Details: EKG with underlying sinus rhythm at 93/Min; no significant ST-T changes and otherwise unremarkable[place] [address]Firorstawxwgruzso, Complete Assessment & Plan Assessment & Plan (1) Abnormal echocardiogram: Code(s): R93.1 - Abnormal findings on diagnostic imaging of heart and coronary circulation Category: Medical (2) Essential hypertension: Code(s): I10 - Essential (primary) hypertension Category: Medical (3) Obesity with serious comorbidity: Code(s): E66.9 - Obesity, unspecified Category: Medical Qualifiers: Obesity type: due to excess calories Obesity classification: adult class 2 (BMI 35 - 39.9) Body mass index: BMI 39.0-39.9 Qualified Code(s): E66.01 - Morbid (severe) obesity due to excess calories; Z68.39 - Body mass index [BMI] 39.0-39.9, adult (4) Preoperative cardiovascular examination: Code(s): Z01.810 - Encounter for preprocedural cardiovascular examination Category: Medical Plan Echocardiogram report as well as images reviewed. Upon my review, I do not believe there is any wall motion abnormality. The area of concern, basal inferior wall seems to be mick well on the contrast images. Hence essentially the echocardiogram is within normal limits. These findings were discussed with patient and he understands. As he has got no relevant cardiac symptoms whatsoever, no immediate indication to pursue further testing at this time. We did discuss about the possibility of future cardiac CT for risk stratification considering his weight and hypertension. However, he would like to avoid any further tests for now. With regard to hypertension, still does not appear to be well controlled. Losing weight will certainly help and he is willing to try. If still runs high, we will need more meds. He can discuss that with his own PCP. Patient states there is a hernia surgery coming up. No contraindications from cardiac and may proceed. Low cardiac risk. Coding Level of Care Code New Pt Level 3 (29038) Diagnoses Abnormal echocardiogram R93.1 Essential hypertension I10 Class 2 severe obesity due to excess calories with serious comorbidity and body mass index (BMI) of 39.0 to 39.9 in adult E66.01; Z68.39 Obesity type: due to excess calories Obesity classification: adult class 2 (BMI 35 - 39.9) Body mass index: BMI 39.0-39.9 Preoperative cardiovascular examination Z01.810 CPT Codes EKG - CPT: 85469-Mzxpvaliposcvvqvz, Complete ([id number])
== END 2024-09-01 13:33 | disposition home or self-care (01) ==
PROVIDERS: PCP Physician Assistant Medical; Visit Provider Internal Medicine
DX: R93.1 Abnormal findings on diagnostic imaging of heart and coronary circulation (principal); I10 Essential (primary) hypertension; E66.01 Morbid (severe) obesity due to excess calories; Z68.39 Body mass index [BMI] 39.0-39.9, adult; Z01.810 Encounter for preprocedural cardiovascular examination
CPT/HCPCS: 93010; 99203

== ENCOUNTER 2024-10-12 15:42 | Outpatient (AMB) | payer OTHER, SELFPAY ==
--- NOTE | 2024-10-12 15:45 | A.OFFPC_ITS ---
Vital Signs 10/12/24 15:48 Height 6 ft 6 in Weight 329 lb BMI 38.0 BP 110/50 L Blood Pressure Location Rt brachial Position Sitting Respiration 14 Pulse 85 Pulse Source Pulse Oximeter Temp 98.7 F Temp Source Oral Pulse Oximetry (%) 97 Oxygen Delivery Method Room Air Intake Visit Reasons: HTN & F/U Pt. surgery on 09/28 at [facility] Intake Note: HTN and f/u post surgery eval Allergies No Known Allergies [No Known Allergies*] Allergy (Verified 10/12/24 15:47) Tobacco use date assessed: 04/06/24 Dental Screening Dental Screen Date: 07/23/24 HPI HPI Comments History of Present Illness Details This is a 38-year-old male with a past medical history of obesity, hypertension and inguinal hernia presenting for hypertension. He started amlodipine 5 mg once daily and increased to 10 mg for hypertension. He denies side effects. His blood pressure at his surgery appointment this afternoon he says was 122/62. Currently blood pressure is 110/50. Denies lightheadedness, dizziness, weakness and fatigue. He had an echocardiogram in May which was normal aside from basal inferior segment hypokinesis. He saw Cardiology to review this, and he was cleared. He has no chest pain or shortness of breath with exertion. Patient underwent inguinal hernia repair at [facility]. No complications. He is doing well. He has no pain. He saw the PA there, and they told him his incision is healing well. He is on leave from work. Last week the patient's daughter and the patient came down with vomiting and diarrhea. He went to the ER after 12 hours of symptoms. He was given IV fluids, nausea medication and pain medication. He has been fine since then. We discussed his labs again which showed mild elevations in bilirubin and mild anemia. This was prior to surgery. Patient did not increase iron rich foods yet in his diet, but he agreed to do so. He denies family history of colorectal cancer. No abdominal pain, unexplained weight loss, stool changes or blood in stools. No vomiting or diarrhea aside from the illness last week. ROS: Constitutional: No unexplained weight loss, fever, chills, fatigue or night sweats. Eyes: No vision changes Respiratory: No shortness of breath Cardiovascular: No chest pain, chest pressure or chest discomfort. No palpitations or pedal edema. Neurologic: No headache, dizziness, syncope Physical exam: Constitutional: Alert, in no distress. Head: Normocephalic. Respiratory: Clear to auscultation. Cardiovascular: S1 S2 regular. No murmurs Gastrointestinal: Abdomen soft, non-tender, non-distended. Normal bowel sounds. No palpable masses. No palpable organomegaly. Psychiatric: Normal mood and affect [facility] Medical History (Updated 09/01/24 @ 13:44 by Michael Steel MD) Elevated bilirubin Mild anemia Routine physical examination Abnormal echocardiogram Obesity with serious comorbidity Essential hypertension Hernia BP (high blood pressure) Rupture of colon Surgical History H/O hernia repair Family History Father Emphysema lung Social History Household Members: Spouse and Family Both parents involved: No Caregiver staying overnight: No Housing: House Are you a primary student career development specialist to a significant other at home: No Do you presently have visiting nurse or other home services: No 75 years or older and lives alone: No Alcohol intake: current Alcohol intake frequency: holidays/special occasions only Patient Tobacco Use Status: Never used Tobacco e-Cigarette/Vaping Use: Never Used service: No Current occupational status: employed 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 1. Little interest or pleasure in doing things: not at all 2. Feeling down, depressed, or hopeless: not at all 3. Trouble falling or staying asleep, or sleeping too much: not at all 4. Feeling tired or having little energy: not at all 5. Poor appetite or overeating: not at all 6. Feeling bad about yourself - or that you are a failure or have let yourself or your family down: not at all 7. Trouble concentrating on things, such as reading the newspaper or watching television: not at all 8. Moving or speaking so slowly that other people could have noticed. Or the opposite - being so fidgety or restless that you have been moving around a lot more than usual: not at all 9. Thoughts that you would be better off or of hurting yourself in some way: not at all Total score: 0 Source: Developed by Drs. Eron Aguilar, Luzmaria Henry, Armaan Middleton and colleagues, with an educational philly from [employer] Thrive Questionnaire Date Thrive assessed: 10/09/24 I am a: Patient What is your living situation today?: I have a steady place to live Within the past 12 months, did the food you bought not last and you didn't have the money to get more?: I choose not to answer this question Within the past 12 months, did you worry whether your food would run out before you got money to buy more?: I choose not to answer this question Do you have trouble paying for medicines?: I choose not to answer this question Do you have trouble getting transportation to medical appointments?: No Do you have trouble paying your heating and electricity bill?: I choose not to answer this question Do you have trouble taking care of your child, family member or friend?: No Do you have trouble with day-to-day activities such as bathing, preparing meals, shopping, managing finances, etc.?: No Are you currently unemployed and looking for a job?: No Are you interested in more education?: Yes Please select the resources that you would like help with: None Currently or been in a relationship where the following occur: No concerns reported THRIVE Score: 0 AUDIT C Alcohol Use Questionnaire (AUDIT-C) 1. How often do you have a drink containing alcohol?: Never 3. How often do you have six or more drinks on one occasion?: Never Total Score: 0 MÓNICA-7 AMB Questionnaire MÓNICA-7 Date MÓNICA - 7 assessed: 07/23/24 Feeling nervous, anxious, or on edge: 0 = Not at all Not being able to stop or control worryin = Not at all Worrying too much about different things: 0 = Not at all Trouble relaxin = Not at all Being so restless that it is hard to sit still: 0 = Not at all Becoming easily annoyed or irritable: 0 = Not at all Feeling afraid as if something awful might happen: 0 = Not at all Total MÓNICA-7 score (0-4 normal; 5-9 mild; 10-14 moderate; 15-21 severe): 0 Source: Developed by Drs. Eron Aguilar, Luzmaria Henry, Armaan Middleton and colleagues, with an educational philly from [employer]). Physical exam (Primary Care) Vital Signs: Last Vital Signs Temp 98.7 F 10/12/24 15:48 Pulse 85 10/12/24 15:48 Resp 14 10/12/24 15:48 BP 110/50 L 10/12/24 15:48 Pulse Ox 97 10/12/24 15:48 Oxygen Delivery Method Room Air 10/12/24 15:48 BMI result Body Mass Index 38.0 Tobacco/Smoking Status: Tobacco use Status Tobacco use date assessed 04/06/24 10/12/24 15:46 Patient Tobacco Use Status Never used Tobacco 10/12/24 15:46 e-Cigarette/Vaping Use Never Used 10/12/24 15:46 PHQ-9: PHQ-9 Score PHQ-9: Total score 0 10/12/24 15:46 Thrive Assessment: Date of Thrive Assessment Date Thrive assessed 10/09/24 10/12/24 15:46 Currently or been in a relationship where the following occur: No concerns reported Coding Level of Care Code Est Pt Level 4 (64188) Complex EM visit Add On G2211 Diagnoses Essential hypertension I10 Elevated bilirubin R17 Mild anemia D64.9 Hernia K46.9 Assessment & Plan Assessment & Plan (1) Essential hypertension: Code(s): I10 - Essential (primary) hypertension Category: Medical Plan: Patient has a blood pressure cuff at home. He will monitor his blood pressure over the next few days and call in the readings to the office. If diastolic blood pressure is under 60 we can decrease amlodipine to 7.5 mg. Continue low- sodium diet and avoidance of caffeine and efforts at weight loss. Avoid alcohol. (2) Elevated bilirubin: Code(s): R17 - Unspecified jaundice Category: Medical Plan: Repeat hepatic function tests in 4 weeks. (3) Mild anemia: Code(s): D64.9 - Anemia, unspecified Category: Medical Plan: Increase iron rich foods. Patient will return to the lab in 4 weeks to check blood count, iron, ferritin, B12, folate and reticulocyte count. (4) Hernia: Code(s): K46.9 - Unspecified abdominal hernia without obstruction or gangrene Category: Medical Plan: Status post inguinal hernia repair and doing well postoperatively. Plan Follow up in 5 weeks to review lab results.
[2024-10-12 15:48] VITALS: BP 110/50; PULSE 85; RESP 14; TEMP 37.1; O2SAT 97; BMI 38.0
--- OUTSIDE RECORDS SUMMARY | 2024-10-12 19:37 | XMS_ITS | Clinical Summary ---
Author Organization [facility] Address [address] [place] [address] Care Team Providers Care Team Guide Name Role Phone Unavailable Primary Care Provider Unavailabl e Social History Tobacco Use Types Packs/Day Years Used Date Smoking Tobacco: Never Assessed Sex and Gender Information Value Date Recorded Sex Assigned at Not on file Gender Identity Not on file Sexual Orientation Not on file Plan of Treatment Health Maintenance Due Date Last Done Comments Hepatitis C Virus Screening 1984 HIV Screening 1997 DTaP/Tdap/Td Vaccines (1 - Tdap) 2003 Hepatitis B Vaccines (1 of 3 - 19+ 3-dose series) 2003 COVID-19 Vaccine (2023-2 5 season) 2024 HPV Vaccines Aged Out No longer eligi ble based on patient's age to complete this topic Pneumococcal Vaccine: Pediat jocelyne (0-5 Years) and At-Risk Patients (6 to 49 Years) Aged Out No longer eligible b ased on patient's age to complete this topic
== END 2024-10-12 16:15 | disposition home or self-care (01) ==
PROVIDERS: PCP Physician Assistant Medical; Visit Provider Physician Assistant Medical
DX: I10 Essential (primary) hypertension (principal); R17 Unspecified jaundice; D64.9 Anemia, unspecified; K46.9 Unspecified abdominal hernia without obstruction or gangrene

== ENCOUNTER 2024-11-19 13:52 | Outpatient (REF) | payer OTHER, SELFPAY ==
--- OUTSIDE RECORDS SUMMARY | 2024-11-19 16:55 | XMS_ITS | Clinical Summary ---
Author Organization [facility] Address [address] [place] [address] Care Team Providers Care Public Information Coordinator Name Role Phone Unavailable Primary Care Provider [...]
[2024-11-19 17:47] LABS: MANUAL DIFF FLAG NO
[2024-11-19 17:59] LABS: Basophils Percent Auto 0.5 % (0-2); Eosinophils Absolute Auto 0.1 X10*3/uL (0.0-0.4); Eosinophils Percent Auto 2.2 % (0-4); Hematocrit 41.6 % (42.0-52.0); Hemoglobin 14.4 g/dl (14.0-18.0); Imm Gran Abs Auto 0.02 X10*3/uL (0.00-0.03); Imm Gran Pct Auto 0.3 % (0.0-0.4); Immature Retic Fraction 11.3 % (2.3-13.4); Lymphocytes Absolute Auto 1.4 X10*3/uL (1.2-4.9); Lymphocytes Percent Auto 24.1 % (20-40); Mean Corpuscular HGB Conc 34.6 g/dl (31.0-36.0); Mean Corpuscular Hemoglobin 31.8 pg (27.0-33.0); Mean Corpuscular Volume 91.8 fL (80.0-98.0); Mean Platelet Volume 9.9 fL (9.4-12.4); Monocytes Absolute Auto 0.4 X10*3/uL (0.1-1.2); Monocytes Percent Auto 7.1 % (2-11); Neutrophils Absolute Auto 3.9 x10*3/uL (2.0-8.3); Neutrophils Percent Auto 65.8 % (45-73); Platelet Count 292 X10*3/uL (160-400); Red Blood Count 4.53 X10*6/uL (4.60-5.80); Red Cell Distribution Width 12.6 % (11.0-16.0); Retic HGB Equivalent 35.2 pg (30.0-35.0); Reticulocyte Percent 1.6 % (0.5-1.8); Reticulocytes Absolute 0.073 X10*6/uL (0.026-0.095); White Blood Count 5.9 X10*3/uL (4.8-10.8)
[2024-11-19 18:29] LABS: Alanine Aminotransferase 28 U/L (0-40); Albumin Level 4.7 g/dL (3.5-5.0); Alkaline Phosphatase 91 U/L (39-117); Aspartate Amino Transferase 23 U/L (5-37); Bilirubin Direct 0.6 mg/dL (0.0-0.5); Bilirubin Total 2.7 mg/dL (0.0-1.0); Iron 63 mcg/dL (45-160); Percent Iron Saturation 24 % (15-50); Total Iron Binding Capacity 265 mcg/dL (228-428); Total Protein 8.3 g/dL (6.5-8.0); Unsaturated Iron Binding 202 ug/dL
[2024-11-19 18:43] LABS: Ferritin 175 ng/mL (20-250)
[2024-11-19 19:11] LABS: Folate 5.7 ng/mL (> or = 4.0); Vitamin B12 384 pg/mL (200-900)
== END 2024-11-19 13:53 | disposition home or self-care (01) ==
LOC: HO.WFDLDS 13:52
PROVIDERS: Visit Provider Physician Assistant Medical
DX: D64.9 Anemia, unspecified (principal); R17 Unspecified jaundice
CPT/HCPCS: 36415; 80076; 82607; 82728; 82746; 83540; 85025; 85045

== ENCOUNTER 2024-11-23 08:30 | Outpatient (AMB) | payer OTHER, SELFPAY ==
--- NOTE | 2024-11-23 08:37 | A.OFFPC_ITS ---
Intake Visit Reasons: follow up lab results Allergies No Known Allergies [No Known Allergies*] Allergy (Verified 11/23/24 08:37) Tobacco use date assessed: 11/23/24 Dental Screening Dental Screen Date: 11/23/24 Did you have a dental visit in the last 12 months?: No Did you have a dental problem in the last 6 months where you did not have access to dental care?: Yes Was dental information given to patient?: Patient has dentist HPI HPI Comments History of Present Illness Details This is a 39-year-old male with a past medical history of mild anemia, elevated bilirubin, hernias and hypertension presenting to discuss his lab results. Since our last visit he did increase some iron rich foods in his diet. His red blood cell count, hemoglobin and hematocrit improved. Hemoglobin is now normal at 14.4. Red blood cell count and hematocrit are also near normal values at 4.53 and 41.6 respectively. White blood cell count, platelet count and white blood cell differential are normal. His reticulocyte count is also just above the normal range at 35.2. Iron, ferritin, B12 and folate were within normal ranges. His total bilirubin level and direct bilirubin levels are elevated still. Patient does not know of anybody in his family with liver or hematologic issues. He denies jaundice, fatigue, unexplained weight loss, abdominal pain, nausea, vomiting. His liver enzymes are normal. [facility] Medical History Elevated bilirubin Mild anemia Routine physical examination Abnormal echocardiogram Obesity with serious comorbidity Essential hypertension Hernia BP (high blood pressure) Rupture of colon Surgical History H/O hernia repair Family History Father Emphysema lung Social History Household Members: Spouse and Family Both parents involved: No Caregiver staying overnight: No Housing: House Are you a primary health care marketing specialist to a significant other at home: No Do you presently have visiting nurse or other home services: No 75 years or older and lives alone: No Alcohol intake: current Alcohol intake frequency: holidays/special occasions only Patient Tobacco Use Status: Never used Tobacco e-Cigarette/Vaping Use: Never Used service: No Current occupational status: employed 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 1. Little interest or pleasure in doing things: not at all 2. Feeling down, depressed, or hopeless: not at all 3. Trouble falling or staying asleep, or sleeping too much: not at all 4. Feeling tired or having little energy: not at all 5. Poor appetite or overeating: not at all 6. Feeling bad about yourself - or that you are a failure or have let yourself or your family down: not at all 7. Trouble concentrating on things, such as reading the newspaper or watching television: not at all 8. Moving or speaking so slowly that other people could have noticed. Or the opposite - being so fidgety or restless that you have been moving around a lot more than usual: not at all 9. Thoughts that you would be better off or of hurting yourself in some way: not at all Total score: 0 Depression Screening Interpretation: Negative Depression Screening Done: Yes 65816 - PHQ-9 Billing: Yes Source: Developed by Drs. Erno Aguilar, Luzmaria Henry, Armaan Middleton and colleagues, with an educational philly from [employer]. Thrive Questionnaire Date Thrive assessed: 11/23/24 I am a: Patient What is your living situation today?: I have a steady place to live Within the past 12 months, did the food you bought not last and you didn't have the money to get more?: I choose not to answer this question Within the past 12 months, did you worry whether your food would run out before you got money to buy more?: I choose not to answer this question Do you have trouble paying for medicines?: I choose not to answer this question Do you have trouble getting transportation to medical appointments?: No Do you have trouble paying your heating and electricity bill?: I choose not to answer this question Do you have trouble taking care of your child, family member or friend?: No Do you have trouble with day-to-day activities such as bathing, preparing meals, shopping, managing finances, etc.?: No Are you currently unemployed and looking for a job?: No Are you interested in more education?: No Please select the resources that you would like help with: None Currently or been in a relationship where the following occur: No concerns reported THRIVE Score: 0 AUDIT C Alcohol Use Questionnaire (AUDIT-C) 1. How often do you have a drink containing alcohol?: Never 3. How often do you have six or more drinks on one occasion?: Never Total Score: 0 MÓNICA-7 AMB Questionnaire MÓNICA-7 Date MÓNICA - 7 assessed: 11/23/24 Feeling nervous, anxious, or on edge: 0 = Not at all Not being able to stop or control worryin = Not at all Worrying too much about different things: 0 = Not at all Trouble relaxin = Not at all Being so restless that it is hard to sit still: 0 = Not at all Becoming easily annoyed or irritable: 0 = Not at all Feeling afraid as if something awful might happen: 0 = Not at all Total MÓNICA-7 score (0-4 normal; 5-9 mild; 10-14 moderate; 15-21 severe): 0 Source: Developed by Drs. Eron Aguilar, Luzmaria Henry, Armaan Middleton and colleagues, with an educational philly from [employer]. MÓNICA-7 Assessment Billing MÓNICA-7 Assessment Tool: MÓNICA-7 Assessment 00952 Physical exam (Primary Care) Tobacco/Smoking Status: Tobacco use Status Tobacco use date assessed 11/23/24 11/23/24 08:40 Patient Tobacco Use Status Never used Tobacco 11/23/24 08:40 e-Cigarette/Vaping Use Never Used 11/23/24 08:40 PHQ-9: PHQ-9 Score PHQ-9: Total score 0 11/23/24 08:40 Depression Screening Interpretation: Negative Thrive Assessment: Date of Thrive Assessment Date Thrive assessed 11/23/24 11/23/24 08:40 Currently or been in a relationship where the following occur: No concerns reported Telehealth Telehealth Telehealth Platform: Telephone Location of provider rendering services: practice address Location of patient: address on file Patient Identification confirmed using: Name, : Yes Telehealth method: voice only Patient verbally consented to treatment: Yes Patient verbally consented to billing insurance company: Yes Patient informed of any privacy concerns related to visit: Yes Minutes spent on Phone/Video with Pt.: 8 Coding Level of Care Code Tele Est Pt Level 3 (64482) Diagnoses Mild anemia D64.9 Elevated bilirubin R17 Additional Codes MÓNICA-7 Assessment Billing - MÓNICA-7 Assessment Tool: MÓNICA-7 Assessment 95652 ([id number]) PHQ-9 - 86973 - PHQ-9 Billing: Yes ([id number]) Assessment & Plan Assessment & Plan (1) Mild anemia: Code(s): D64.9 - Anemia, unspecified Category: Medical (2) Elevated bilirubin: Code(s): R17 - Unspecified jaundice Category: Medical Plan He has no iron-deficiency, B12 or folate deficiency. His blood count values are now close to normal after increasing iron rich foods in his diet. Bilirubin elevation persists. We will evaluate for potential liver disease with liver ultrasound and elastography. Gilbert's is also in the differential. We will consider referral to specialist once this is resulted. Orders: Orders US abdomen soria w elastography Today R17 - Unspecified jaundice
--- OUTSIDE RECORDS SUMMARY | 2024-11-23 08:43 | XMS_ITS | Clinical Summary ---
Author Organization [facility] Address [address] [place] [address] Care Team Providers Care Valve Seater Operator Name Role Phone Unavailable Primary Care Provider [...]
== END 2024-11-23 09:22 | disposition home or self-care (01) ==
LOC: HO.HMCFM 08:30
PROVIDERS: PCP Physician Assistant Medical; Visit Provider Physician Assistant Medical
DX: D64.9 Anemia, unspecified (principal); R17 Unspecified jaundice

== ENCOUNTER → 2024-11-23 08:30 | Outpatient (BNVA) | payer OTHER, SELFPAY | PROVIDERS: PCP Physician Assistant Medical; Visit Provider Physician Assistant Medical | DX: D64.9 Anemia, unspecified (principal); R17 Unspecified jaundice; I10 Essential (primary) hypertension | CPT/HCPCS: 96127 ==

== ENCOUNTER 2024-12-21 09:58 | Outpatient (AMB) | payer OTHER, SELFPAY ==
--- NOTE | 2024-12-21 10:06 | A.OFFPC_ITS ---
Vital Signs 12/21/24 10:12 12/21/24 10:40 Height 6 ft 6 in Weight 315 lb 4 oz BMI 36.4 BP 138/88 Blood Pressure Location Rt brachial Position Sitting Pulse 113 H 86 Pulse Source Pulse Oximeter Pulse Oximetry (%) 98 Oxygen Delivery Method Room Air Intake Visit Reasons: speak about paperwork/letter for work Intake Note: Levar presents in the office today to discuss paperwork and a letter for work. 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 He underwent inguinal hernia repair at [facility]. There were no complications. He was on leave from work. Patient says he discussed return to work with his surgeon. He was cleared to return to work. Per patient they had discussed going back with limitation of no more than 25 lb for lifting due multiple hernias that have required surgical repair. There was a communication with the surgeon's office, and he does not have an appointment until January, and his paperwork said nothing about restrictions. He needs a letter to specify the lifting restriction. He was anxious about this because he was supposed to return to work today. There is also the possibility that they will not be able to accommodate him. If that is the case they will see if there is another available job on the campus that is a suitable alternative, and if that is not the case he will be terminated. Patient says he is okay if he loses his job, and he will be able to collect unemployment until he gets a new job in another field. His blood pressure is mildly elevated today. He is taking amlodipine but he was stressed out about all of this. ROS: Constitutional: No unexplained weight loss, fever, chills, fatigue or night sweats. Eyes: No vision changes Respiratory: No shortness of breath Cardiovascular: No chest pain, chest pressure or chest discomfort. No palpitations or pedal edema. Neurologic: No headache, dizziness, syncope Physical exam: Constitutional: Alert, in no distress. Head: Normocephalic. Respiratory: Clear to auscultation. Cardiovascular: S1 S2 regular. No murmurs Psychiatric: Normal mood and affect [facility] Medical History Elevated bilirubin Mild anemia Routine physical examination Abnormal echocardiogram Obesity with serious comorbidity Essential hypertension Hernia BP (high blood pressure) Rupture of colon Surgical History (Updated 12/21/24 @ 17:36 by SURESH Lima) H/O hernia repair Family History Father Emphysema lung Social History Household Members: Spouse and Family Both parents involved: No Caregiver staying overnight: No Housing: House Are you a primary client care manager to a significant other at home: No Do you presently have visiting nurse or other home services: No 75 years or older and lives alone: No Alcohol intake: current Alcohol intake frequency: holidays/special occasions only Patient Tobacco Use Status: Never used Tobacco e-Cigarette/Vaping Use: Never Used service: No Current occupational status: employed Current occupation: [employer] Current occupational exposures/hazards: No Cognitive 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 1. Little interest or pleasure in doing things: not at all 2. Feeling down, depressed, or hopeless: not at all 3. Trouble falling or staying asleep, or sleeping too much: more than half the days 4. Feeling tired or having little energy: more than half the days 5. Poor appetite or overeating: more than half the days 6. Feeling bad about yourself - or that you are a failure or have let yourself or your family down: nearly every day 7. Trouble concentrating on things, such as reading the newspaper or watching television: nearly every day 8. Moving or speaking so slowly that other people could have noticed. Or the opposite - being so fidgety or restless that you have been moving around a lot more than usual: more than half the days 9. Thoughts that you would be better off or of hurting yourself in some way: not at all Total score: 14 Depression Screening Interpretation: Positive Depression Screening Done: Yes 95818 - PHQ-9 Billing: Patient declined-do not bill Source: Developed by Drs. Eron Aguilar, Luzmaria Henry, Armaan Middleton and colleagues, with an educational philly from [employer]. Thrive Questionnaire Date Thrive assessed: 12/21/24 I am a: Patient What is your living situation today?: I have a steady place to live Within the past 12 months, did the food you bought not last and you didn't have the money to get more?: I choose not to answer this question Within the past 12 months, did you worry whether your food would run out before you got money to buy more?: I choose not to answer this question Do you have trouble paying for medicines?: I choose not to answer this question Do you have trouble getting transportation to medical appointments?: No Do you have trouble paying your heating and electricity bill?: I choose not to answer this question Do you have trouble taking care of your child, family member or friend?: No Do you have trouble with day-to-day activities such as bathing, preparing meals, shopping, managing finances, etc.?: No Are you currently unemployed and looking for a job?: No Are you interested in more education?: Yes Please select the resources that you would like help with: None Currently or been in a relationship where the following occur: No concerns reported THRIVE Score: 0 MÓNICA-7 AMB Questionnaire MÓNICA-7 Date MÓNICA - 7 assessed: 12/21/24 Feeling nervous, anxious, or on edge: 2 = More than half the days Not being able to stop or control worryin = Not at all Worrying too much about different things: 0 = Not at all Trouble relaxin = More than half the days Being so restless that it is hard to sit still: 0 = Not at all Becoming easily annoyed or irritable: 3 = Nearly every day Feeling afraid as if something awful might happen: 0 = Not at all Total MÓNICA-7 score (0-4 normal; 5-9 mild; 10-14 moderate; 15-21 severe): 7 Source: Developed by Luzmaria Cochran.W. Carl, Armaan Middleton and colleagues, with an educational philyl from [employer]. MÓNICA-7 Assessment Billing MÓNICA-7 Assessment Tool: MÓNICA-7 Assessment 29429 Physical exam (Primary Care) Vital Signs: Last Vital Signs Pulse 86 12/21/24 10:40 BP 138/88 12/21/24 10:12 Pulse Ox 98 12/21/24 10:12 Oxygen Delivery Method Room Air 12/21/24 10:12 BMI result Body Mass Index 36.4 Tobacco/Smoking Status: Tobacco use Status Tobacco use date assessed 12/21/24 12/21/24 10:16 Patient Tobacco Use Status Never used Tobacco 12/21/24 10:07 e-Cigarette/Vaping Use Never Used 12/21/24 10:07 PHQ-9: PHQ-9 Score PHQ-9: Total score 14 12/21/24 10:54 Depression Screening Interpretation: Positive Thrive Assessment: Date of Thrive Assessment Date Thrive assessed 12/21/24 12/21/24 10:16 Currently or been in a relationship where the following occur: No concerns reported Coding Level of Care Code Est Pt Level 3 (12177) Complex EM visit Add On G2211 Diagnoses History of hernia repair Z98.890; Z87.19 Essential hypertension I10 Additional Codes MÓNICA-7 Assessment Billing - MÓNICA-7 Assessment Tool: MÓNICA-7 Assessment 31985 ([id number]) Assessment & Plan Assessment & Plan (1) History of hernia repair: Code(s): Z98.890 - Other specified postprocedural states; Z87.19 - Personal history of other diseases of the digestive system (2) Essential hypertension: Code(s): I10 - Essential (primary) hypertension Category: Medical Plan: His blood pressure is suboptimal today, but he is under a lot of stress. He felt better before leaving the appointment. Continue amlodipine. Recommended weight loss and low-sodium diet. Avoid caffeine. Plan The patient has a history of multiple hernias requiring surgical repair. Provided with no to limit lifting at work to no more than 25 lb. He will keep the appointment with his surgeon in January.
[2024-12-21 10:12] VITALS: BP 138/88; PULSE 113; O2SAT 98; BMI 36.4
[2024-12-21 10:40] VITALS: PULSE 86
--- OUTSIDE RECORDS SUMMARY | 2024-12-21 11:37 | XMS_ITS | Clinical Summary ---
Author Organization [facility] Address [address] [place] [address] Care Team Providers Care Coke Worker Name Role Phone Unavailable Primary Care Provider [...]
== END 2024-12-21 10:55 | disposition home or self-care (01) ==
LOC: HO.HMCFM 09:58
PROVIDERS: PCP Physician Assistant Medical; Visit Provider Physician Assistant Medical
DX: Z98.890 Other specified postprocedural states (principal); Z87.19 Personal history of other diseases of the digestive system; I10 Essential (primary) hypertension

== ENCOUNTER → 2024-12-21 09:58 | Outpatient (BNVA) | payer OTHER, SELFPAY | PROVIDERS: PCP Physician Assistant Medical; Visit Provider Physician Assistant Medical | DX: I10 Essential (primary) hypertension (principal); Z87.19 Personal history of other diseases of the digestive system; Z79.899 Other long term (current) drug therapy | CPT/HCPCS: 96127 ==

== ENCOUNTER 2024-12-29 08:03 | Outpatient (REF) | payer OTHER, SELFPAY ==
--- NOTE | ~2024-12-29 | US_ITS ---
EXAMINATION: US ABDOMEN LIMITED WITH LIVER ELASTOGRAPHY HISTORY: R17 - Unspecified jaundice TECHNIQUE: Real-time grayscale ultrasound imaging of the right upper quadrant was performed and images were reviewed. COMPARISON: Correlation is made with an MRI of the abdomen dated 08/17/2019. FINDINGS: Liver: The right lobe of the liver measures 17.6 cm in size. The left lobe of the liver measures 12.0 cm in size. The liver demonstrates normal homogeneous echotexture. No focal mass or intrahepatic biliary ductal dilatation is identified. There is normal hepatopedal flow in the portal vein. Ultrasound elastography of the liver was performed with 10 separate measurements of the liver parenchyma with the patient in the supine position. Measurements were obtained approximately 2 cm below Jet's capsule and perpendicular to the capsule. Images are of satisfactory quality. The median shear wave velocity is 1.09 m/s. The interquartile range/median (IQR/median) is 0.18. Gallbladder and biliary tree: There is a 5 x 7 x 6 mm gallbladder polyp. There is mild gallbladder wall thickening. The gallbladder is otherwise unremarkable, without evidence of calculi or pericholecystic fluid. There is no sonographic Chandler sign. The common bile duct is normal in caliber measuring 4 mm. Right Kidney: The right kidney measures 10.9 cm in length and demonstrates a 1.7 cm cyst with wall calcification at the lower pole. The right kidney is otherwise unremarkable, without evidence of solid masses, hydronephrosis, or calculi. Pancreas: The pancreatic head, neck, and body are unremarkable. The pancreatic tail is obscured by bowel gas. Abdominal aorta and inferior vena cava: The visualized portions of the abdominal aorta and inferior vena cava are normal in caliber. There is no free fluid in the right upper quadrant. US/US abdomen soria w elastography IMPRESSION: Hepatomegaly. 5 x 7 x 6 mm gallbladder polyp. The median shear wave velocity in the liver is 1.09 m/s, corresponding to a median liver stiffness of 3.6 kPa. The IQR/median value is 0.18. This is indicative of a poor quality data set, and the estimated liver stiffness may be unreliable. Findings are indicative of a normal elastography value with a low likelihood of severe fibrosis or cirrhosis. REFERENCE: Society of Radiologists in Ultrasound Liver Stiffness Thresholds (2020): LIVER STIFFNESS THRESHOLDS: *Shear wave velocity less than 1.3 m/s (Liver Stiffness equal or less than 5 kPa): High probability of being normal. *Shear wave velocity less than 1.7 m/s (Liver Stiffness less than 9 kPa): In the absence of other known clinical signs, rules out compensated advanced chronic liver disease. *Shear wave velocity between 1.7-2.1 m/s (Liver Stiffness 9-13 kPa): Suggestive of compensated advanced chronic liver disease but need further test for confirmation. *Shear wave velocity between 2.1-2.4 m/s (Liver Stiffness 13-17 kPa): Rules in compensated advanced chronic liver disease. *Shear wave velocity greater than 2.4 m/s (Liver Stiffness over 17 kPa): Suggestive of clinically significant portal hypertension. QUALITY OF DATA SET: *IQR/Median value equal or less than 0.15 implies a quality data set. *IQR/Median value over 0.15 implies a poor quality data set. SIGNIFICANT CHANGE FROM PRIOR EXAM: Significant change if liver stiffness measurement is 10% or greater from prior exam. OTHER CONSIDERATIONS: The stage of liver fibrosis may be overestimated in the setting of acute hepatitis, liver inflammation, elevated liver function tests, hepatic vascular congestion, obstructive cholestasis, non-fasting state, and infiltrative diseases such as amyloidosis and lymphoma. In some patients with NAFLD, the liver stiffness thresholds for compensated advanced chronic liver disease may be lower. In causes other than viral hepatitis and NAFLD, liver stiffness thresholds are not well established. Electronically signed by: Eron Burgos MD 12/29/2024 08:58 AM EDT
--- OUTSIDE RECORDS SUMMARY | 2024-12-29 08:07 | XMS_ITS | Clinical Summary ---
Author Organization [facility] Address [address] [place] [address] Care Team Providers Care Maintenance Worker Municipal Name Role Phone Unavailable Primary Care Provider [...]
== END 2024-12-29 08:04 | disposition home or self-care (01) ==
LOC: HO.US 08:03
PROVIDERS: PCP Physician Assistant Medical; Visit Provider Physician Assistant Medical
DX: R17 Unspecified jaundice (principal)
CPT/HCPCS: 76705; 76981

== ENCOUNTER → 2024-12-29 08:05 | Outpatient (BNV) | payer OTHER, SELFPAY | PROVIDERS: PCP Physician Assistant Medical; Visit Provider Radiology Diagnostic Radiology | DX: R17 Unspecified jaundice (principal); R16.0 Hepatomegaly, not elsewhere classified | CPT/HCPCS: 76705; 76981 ==